=== PATIENT | male | born 1960 | race Caucasian/White ===

== ENCOUNTER 2017-11-25 19:42 | Emergency (ER) | payer MEDICARE ==
[2017-11-25 20:15] LABS: #Basophils 0.1 thou/uL (0.0-0.2); #Eosinphils 0.2 thou/uL (0.0-0.7); #Lymphocytes 2.9 thou/uL (1.20-3.40); #Monocytes 0.8 thou/uL (0.11-0.59); %Basophils 0.8 % (0.0-1.0); %Eosinophils 2.3 % (0.0-10.0); %Lymphocytes 36.1 % (21.0-51.0); %Monocytes 10.6 % (0.0-10.0); %Neutrophils 50.2 % (42.0-75.0); Hemoglobin 15.5 g/dL (14.0-18.0); Mean Corpuscular HGB CONC 35.5 g/dL (32.0-36.0); Mean Corpuscular Hemoglobin 32.9 pg (27.0-31.0); Mean Corpuscular Volume 92.8 fl (80.0-94.0); Mean Platelet Volume 7.1 fL (7.4-10.4); Platelet Count 255 thou/uL (130-400); RBC Distribution Width 12.2 % (11.5-14.5); Red Blood Cell (RBC) Count 4.69 mill/uL (4.70-6.10); White Blood Cell (WBC) Count 7.9 thou/uL (4.8-10.8)
[2017-11-25 20:30] LABS: ALT (SGPT) 20 U/L (8-55); AST (SGOT) 18 U/L (5-34); Albumin 4.4 g/dL (3.5-5.0); Alkaline Phosphatase 62 U/L (40-150); Anion Gap 12 mmol/L (10-20); BUN (Urea Nitrogen) 18 mg/dL (8.4-25.7); Bilirubin, Total 0.6 mg/dL (0.2-1.2); Calc. Creatinine Clearance 0 mL/min (70-130); Calcium 9.9 mg/dL (7.8-10.44); Carbon Dioxide 26 mmol/L (22-29); Chloride 102 mmol/L (98-107); Estimated GFR-MDRD 73; Glucose 91 mg/dL (70-105); Protein, Total 7.4 g/dL (6.0-8.3); Sodium 136 mmol/L (136-145)
--- NOTE | 2017-11-25 20:31 | CT ---
HEAD CT NONCONTRAST: Indication: Fall, altered mental status. Injury. Comparison: 10-25-16 FINDINGS: Stable region of left temporal encephalomalacia with overlying craniotomy. Mild ex vacuo dilatation i s grossly stable. There is no evidence of acute intracranial hemorrhage, mass effect, or midline shif t. IMPRESSION: Stable noncontrast head CT without evidence of acute intracranial hemorrhage or mass effect. POS: [facility]
[2017-11-25 20:33] LABS: Lactic Acid 0.8 mmol/L (0.5-2.2)
[2017-11-25 20:34] LABS: Troponin I 0.013 ng/mL (< 0.028)
[2017-11-25 20:37] LABS: Acetaminophen Less than 6.0 mcg/mL (10.0-30.0); Alcohol Less than 10 mg/dL (Less than 10); Lipase 46 U/L (8-78); Salicylate Less than 8.0 mg/dL (15.0-30.0)
[2017-11-25 21:19] LABS: Amphetamine Not Detected (NotDetected); Barbiturates Screen Not Detected (NotDetected); Benzodiazepine Screen Not Detected (NotDetected); Cocaine Metabolite Screen Not Detected (NotDetected); Medtox Control Line Valid? VALID (VALID); Medtox Reader # READER 1; Methadone Not Detected (NotDetected); Methamphetamine Not Detected (NotDetected); Opiate Screen Detected (NotDetected); Oxycodone Screen Not Detected (NotDetected); Phencyclidine (PCP) Not Detected (NotDetected); THC/Cannabinoid Screen Not Detected (NotDetected); Tricyclic Screen Not Detected (NotDetected)
[2017-11-25] MEDS ORDERED: Ondansetron HCl/PF 4 MG/2 ML Vial ONE (21:19)
--- NOTE | 2017-11-25 23:05 | CT ---
NONCONTRAST CT ABDOMEN AND PELVIS CT LUMBAR SPINE: Date: 11-25-17 History: Patient with lower back pain with pain radiating to left leg after falling onto back. Patien t passed out on stretcher. Comparison: 10-25-16 FINDINGS: There is dependent atelectasis bilaterally. Lung bases are otherwise clear. There is a stable low density lesion within the medial aspect inferior pole left kidney. The liver, spleen, pancreas bilateral adrenal glands, right kidney and urinary bladder demonstrate a grossly normal nonenhanced CT appearance. Nonenhanced imaging limits sensitivity for evaluation of pa renchymal organ injury. Vascular calcifications are seen in the abdominal aorta and iliac arteries. IVC filter is again noted in place. The appendix is visualized and normal in caliber. No free fluid, fluid collection, or lymphadenopathy is seen in the abdomen or pelvis. There has been no significant interval change when compared to the post contrasted study in 2017. CT LUMBAR SPINE: No fracture or subluxation is seen involving the lumbar spine. There is posterior fusion at the L5-S1 level with suggestion of prior laminectomy defect at this level. The vertebral body heights are with in normal limits. Degenerative changes are seen in the lumbar spine. IMPRESSION: 1. No acute findings are seen in the abdomen or pelvis on this nonenhanced CT scan exam. 2. Stable low density lesion in the inferior pole left kidney. 3. Vascular calcifications. 4. Degenerative changes in the lumbar spine, but no fracture or subluxation is appreciated. POS: [facility]
== END 2017-11-25 23:00 | disposition home or self-care (01) ==
LOC: ERS 19:42
DX: S06.0X0A Concussion without loss of consciousness, initial encounter (principal); Z79.899 Other long term (current) drug therapy; W19.XXXA Unspecified fall, initial encounter
CPT/HCPCS: 36415; 36416; 70450; 74176; 80053; 80306; 80307; 82140; 83605; 83690; 84146; 84484; 85025; 93005; 96374; 96375; J2270; J2405

== ENCOUNTER 2017-12-26 07:50 | Day surgery (SDC) | payer MEDICARE ==
[2017-12-25 14:04] VITALS: BMI 22.4
--- NOTE | 2017-12-25 23:06 | HP ---
HISTORY OF PRESENT ILLNESS: Mr. Hamilton is a 57-year-old man who is known to us for prior decompress bryce craniectomy in 2015 as well as subsequent cranioplasty. He returns today for evaluation of sever e left-sided L5 radiculopathy that has caused him profound amount of pain and debility. He does have a CAT scan performed at [facility] a few months ago that reveals severe bony narrowing of the latera l recess at L4-L5 to the left and I feel it fits his pain rather well. On exam, patient is alert and oriented x3. His gait is severely antalgic. Straight leg raise is positive on the left lower extre mity. He is also sensitive and tender to palpation over the left buttock and left low back. PAST MEDICAL HISTORY: Severe traumatic brain injury. PAST SURGICAL HISTORY: Lumbar decompression, craniectomy and cranioplasty. CURRENT MEDICATIONS: Clonazepam, trazodone, and Tylenol. ALLERGIES: No known drug allergies. ASSESSMENT: Lumbar radiculopathy. PLAN: Dr. Bauer met with the patient, reviewed imaging and advocated for a left L5 decompression. Ester smith explained to the patient the risks, benefits, and alternatives of the procedure. The patient expre ssed understanding and would like to move forward with surgery as discussed. I do believe the patien t is mentally competent and capable of making medical decisions for himself. We will perform surgery as planned.
[2017-12-26] MEDS ORDERED: Levofloxacin 500 mg/D5W 100 ml Premix Bag ONE (09:46)
[2017-12-26] MEDS ORDERED: Clindamycin/D5W 900 mg/50 ml Premix Bag ONE ×2 (09:46→10:33)
[2017-12-26] MEDS ORDERED: Bupivacaine HCl 0.5%/Epinephrine 1:200,000/PF 30 ml Vial ONE (10:17)
[2017-12-26] MEDS ORDERED: Fentanyl 100 MCG/2 ML VIAL ONE ×2 (11:09→12:59)
--- NOTE | 2017-12-26 12:12 | OP ---
DATE OF PROCEDURE: 12/26/2017 SURGEON: Jonathan Bauer M.D. NURSE COLLEGE: Quincy Faye PA-C. INDICATION: Pain. DIAGNOSIS: Lumbar radiculopathy. PROCEDURES PERFORMED: Left L5 hemilaminectomy, medial facetectomy, decompression. ANESTHESIA: General. TECHNIQUE: The patient was brought into the operating room and placed under general anesthesia. He was flipped from a supine to prone position on the operating room table. A linear incision was plann ed over the L5 segment. After prepping and draping and after an appropriate operative pause, the inc ision was created. The soft tissues were swept away from midline. After confirming the appropriate level, high-speed cutting drill bit as well as 2, 3 and 4-mm Kerrison was used to perform hemilaminec cathryn along L5 on the left to decompress the bony elements encroaching upon the lateral recess. After decompressing the segment, the wound was irrigated. Hemostasis was maintained throughout. The woun d was then closed in anatomic layers and a pressure dressing was applied. There were no known proced ural complications.
[2017-12-26] MEDS ORDERED: PROPOFOL 200 MG/20 ML VIAL ONE (13:15)
[2017-12-26] MEDS ORDERED: Glycopyrrolate 0.2 MG/ML 5 ML SYRINGE ONE (13:15)
[2017-12-26] MEDS ORDERED: PHENYLEPHRINE-NS 100 MCG/ML 10 ML SYRINGE ONE (13:15)
[2017-12-26] MEDS ORDERED: Ondansetron HCl/PF 4 MG/2 ML Vial ONE (13:15)
[2017-12-26] MEDS ORDERED: Lidocaine 1% PF 5 ML VIAL ONE (13:15)
[2017-12-26] MEDS ORDERED: Morphine 4 MG/ML VIAL ONE (13:31)
[2017-12-26] MEDS ORDERED: Acetaminophen/Codeine 30-300mg Tablet ONE (15:03)
== END 2017-12-26 15:45 | disposition home or self-care (01) ==
LOC: SDC 07:50
PROVIDERS: ATTEND Neurological Surgery
PROC: 01NB0ZZ Release Lumbar Nerve, Open Approach (ICD-10-PCS; principal; 2017-12-26)
DX: M54.16 Radiculopathy, lumbar region (principal); Z79.899 Other long term (current) drug therapy; Z88.0 Allergy status to penicillin; Z98.890 Other specified postprocedural states; Z87.820 Personal history of traumatic brain injury
CPT/HCPCS: 76001; 96374; J0670; J1956; J2001; J2270; J2405; J2704; J3010; J3490

== ENCOUNTER 2018-09-30 15:47 | Emergency (ER) | payer MEDICARE ==
[2018-09-30 16:25] LABS: #Eosinphils 0.1 thou/uL (0.0-0.7); #Lymphocytes 1.3 thou/uL (1.20-3.40); #Monocytes 0.7 thou/uL (0.11-0.59); #Neutrophils 5.8 thou/uL (1.40-6.50); %Basophils 0.3 % (0.0-1.0); %Eosinophils 1.2 % (0.0-10.0); %Lymphocytes 16.4 % (21.0-51.0); %Monocytes 8.3 % (0.0-10.0); %Neutrophils 73.7 % (42.0-75.0); Hemoglobin 16.6 g/dL (14.0-18.0); Mean Corpuscular Hemoglobin 31.6 pg (27.0-31.0); Mean Corpuscular Volume 90.3 fL (78.0-98.0); Mean Platelet Volume 7.8 fL (7.4-10.4); Platelet Count 277 thou/uL (130-400); RBC Distribution Width 11.7 % (11.5-14.5); Red Blood Cell (RBC) Count 5.26 mill/uL (4.70-6.10); White Blood Cell (WBC) Count 7.8 thou/uL (4.8-10.8)
[2018-09-30] MEDS ORDERED: Acetaminophen 500 MG TAB ONE (16:42)
[2018-09-30 16:46] LABS: Acetaminophen Less than 6.0 mcg/mL (10.0-30.0); Alcohol Less than 10 mg/dL (Less than 10); CK (CPK) 58 U/L (30-200); Salicylate Less than 8.0 mg/dL (15.0-30.0)
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
[2018-09-30 17:12] LABS: Amphetamine Not Detected (NotDetected); Barbiturates Screen Not Detected (NotDetected); Benzodiazepine Screen Not Detected (NotDetected); Cocaine Metabolite Screen Not Detected (NotDetected); Medtox Control Line Valid? VALID (VALID); Medtox Reader # READER 1; Methadone Not Detected (NotDetected); Methamphetamine Not Detected (NotDetected); Opiate Screen Detected (NotDetected); Oxycodone Screen Not Detected (NotDetected); Phencyclidine (PCP) Not Detected (NotDetected); THC/Cannabinoid Screen Not Detected (NotDetected); Tricyclic Screen Not Detected (NotDetected)
== END 2018-09-30 17:30 | disposition home or self-care (01) ==
LOC: ERS 15:47
DX: S06.0X0A Concussion without loss of consciousness, initial encounter (principal); I10 Essential (primary) hypertension; W22.8XXA Striking against or struck by other objects, initial encounter; Y93.67 Activity, basketball
CPT/HCPCS: 36415; 70450; 80306; 80307; 82550; 85025; 93005

== ENCOUNTER 2018-12-31 18:31 | Emergency (ER) | payer MEDICARE ==
--- NOTE | 2018-12-31 20:01 | RAD ---
RIGHT KNEE FOUR VIEWS: 12/31/18 HISTORY: Right knee pain. FINDINGS/IMPRESSION: Comparison made with exam of 10/17/15. Degenerative changes are again seen. No acute fracture, dislocation or bony destruction identified. POS: [facility]
== END 2018-12-31 19:23 | disposition left against medical advice (07) ==
LOC: ERS 18:31
DX: M25.561 Pain in right knee (principal)

== ENCOUNTER 2021-03-05 19:18 | Emergency (ER) | payer OTHER, MEDICARE ==
[2021-03-05] MEDS ORDERED: Ketorolac Tromethamine 30 MG/ML VIAL ONE (19:25)
== END 2021-03-05 20:15 | disposition home or self-care (01) ==
LOC: ERS 19:18
DX: M54.2 Cervicalgia (principal); R51.9 Headache, unspecified; V89.2XXA Person injured in unspecified motor-vehicle accident, traffic, initial encounter
CPT/HCPCS: 72125; 96374; J1885

== ENCOUNTER 2022-01-23 23:21 | Emergency (ER) | payer MEDICARE ==
[2022-01-23] MEDS ORDERED: Ondansetron PF 4 MG/2 ML Vial ONE (23:44)
[2022-01-23] MEDS ORDERED: Morphine 4 MG/ML VIAL ONE (23:44)
[2022-01-24 00:11] LABS: #Eosinphils 0.1 thou/uL (0.0-0.7); #Lymphocytes 3.3 thou/uL (1.20-3.40); #Monocytes 1.3 thou/uL (0.11-0.59); #Neutrophils 6.8 thou/uL (1.40-6.50); %Basophils 0.3 % (0.0-1.0); %Lymphocytes 28.3 % (21.0-51.0); %Monocytes 11.1 % (0.0-10.0); %Neutrophils 59.3 % (42.0-75.0); Hemoglobin 16.1 g/dL (14.0-18.0); Mean Corpuscular HGB CONC 34.7 g/dL (32.0-36.0); Mean Corpuscular Hemoglobin 32.2 pg (27.0-31.0); Mean Corpuscular Volume 92.6 fL (78.0-98.0); Mean Platelet Volume 7.3 fL (7.4-10.4); Platelet Count 272 thou/uL (130-400); RBC Distribution Width 11.6 % (11.5-14.5); White Blood Cell (WBC) Count 11.5 thou/uL (4.8-10.8)
[2022-01-24 00:30] LABS: ALT (SGPT) 26 U/L (8-55); AST (SGOT) 21 U/L (5-34); Albumin 4.3 g/dL (3.5-5.0); Alkaline Phosphatase 71 U/L (40-110); Anion Gap 13 mmol/L (10-20); BUN (Urea Nitrogen) 19 mg/dL (8.4-25.7); Bilirubin, Total 0.5 mg/dL (0.2-1.2); Calc. Creatinine Clearance 0 mL/min (70-130); Calcium 9.8 mg/dL (7.8-10.44); Carbon Dioxide 25 mmol/L (22-29); Chloride 103 mmol/L (98-107); Globulin 3.2 g/dL (2.4-3.5); Glucose 95 mg/dL (70-105); Potassium 3.9 mmol/L (3.5-5.1); Protein, Total 7.5 g/dL (6.0-8.3); Sodium 137 mmol/L (136-145)
[2022-01-24 01:26] LABS: Bacteria/HPF None Seen HPF (None Seen); Bilirubin Negative (Negative); Blood, Urine 3+ (Negative); Clarity Clear (Clear); Glucose, Urine (Dipstick) Normal (Negative); Ketone, Urine Negative (Negative); Leukocyte 25 Leu/uL (Negative); Nitrite Negative (Negative); Protein, Urine (Dipstick) 10 mg/dL (Neg-Trace); RBC/HPF Greater than 50 HPF (0-3); Specific Gravity, Urine 1.028 (1.002-1.036); Squamous Epithelial None Seen HPF (0-3); Urobilinogen Normal mg/dL (Less than 2); WBC/HPF 21-50 HPF (0-3); pH, Urine 5.5 (5.0-9.0)
[2022-01-24 18:10] LABS: Chlam.trachomatis by PCR,Urine Not Detected (NotDetected)
== END 2022-01-24 02:13 | disposition home or self-care (01) ==
LOC: ERS 23:21
DX: N45.1 Epididymitis (principal)
CPT/HCPCS: 76870; 80053; 81003; 81015; 85025; 87491; 87591; 93976; 96374; 96375; J2270; J2405

== ENCOUNTER 2022-06-27 16:57 | Inpatient (IN) | payer OTHER, MEDICARE ==
[2022-06-27] MEDS ORDERED: Morphine 4 MG/ML VIAL ONE (17:03)
[2022-06-27] MEDS ORDERED: Boostrix 0.5 ML (Tdap) VIAL (>/=7 yrs of age) ONE (17:47)
[2022-06-27] MEDS ORDERED: HYDROmorphone 0.5 MG/0.5 ML SYRINGE ONE (17:54)
[2022-06-27 18:16] LABS: #Eosinphils 0.1 thou/uL (0.0-0.7); #Lymphocytes 1.7 thou/uL (1.20-3.40); #Monocytes 1.1 thou/uL (0.11-0.59); #Neutrophils 11.4 thou/uL (1.40-6.50); %Basophils 0.3 % (0.0-1.0); %Eosinophils 0.6 % (0.0-10.0); %Lymphocytes 11.9 % (21.0-51.0); %Monocytes 7.8 % (0.0-10.0); %Neutrophils 79.4 % (42.0-75.0); Hemoglobin 15.4 g/dL (14.0-18.0); Mean Corpuscular HGB CONC 34.2 g/dL (32.0-36.0); Mean Corpuscular Hemoglobin 32.2 pg (27.0-31.0); Mean Corpuscular Volume 94.1 fL (78.0-98.0); Platelet Count 247 thou/uL (130-400); RBC Distribution Width 12.1 % (11.5-14.5); White Blood Cell (WBC) Count 14.3 thou/uL (4.8-10.8)
[2022-06-27 18:27] LABS: INR-International Normal Ratio 0.9; Prothrombin Time 12.7 sec (12.0-14.7)
[2022-06-27 18:28] LABS: PTT 30.2 sec (22.9-36.1)
[2022-06-27] MEDS ORDERED: hydrALAZINE 20 MG/ML VIAL SLOW IVP PRN (18:35)
[2022-06-27] MEDS ORDERED: Dextrose 5% in Water 1,000 ML IV PRN (18:35)
[2022-06-27] MEDS ORDERED: Dextrose 50% Abboject 50 ML SYRINGE SLOW IVP PRN (18:35)
[2022-06-27] MEDS ORDERED: Fentanyl 100 MCG/2 ML VIAL ONE (19:06)
[2022-06-27 19:14] LABS: Phosphorus 2.7 mg/dL (2.3-4.7)
[2022-06-27 19:15] LABS: ALT (SGPT) 37 U/L (8-55); AST (SGOT) 28 U/L (5-34); Albumin 4.4 g/dL (3.5-5.0); Alkaline Phosphatase 69 U/L (40-110); Anion Gap 12 mmol/L (10-20); BUN (Urea Nitrogen) 15 mg/dL (8.4-25.7); Bilirubin, Total 0.7 mg/dL (0.2-1.2); Calc. Creatinine Clearance 0 mL/min (70-130); Calcium 9.5 mg/dL (7.8-10.44); Carbon Dioxide 26 mmol/L (22-29); Chloride 104 mmol/L (98-107); Estimated GFR 77; Glucose 101 mg/dL (70-105); Potassium 3.9 mmol/L (3.5-5.1); Protein, Total 7.4 g/dL (6.0-8.3); Sodium 138 mmol/L (136-145)
[2022-06-27 20:15] VITALS: BMI 27.3
[2022-06-27] MEDS ORDERED: Potassium Phosphate 15 MMOL in Sodium Chloride 0.9% 250 ML 250 ML IVPB SCH (20:15)
[2022-06-27] MEDS: Sodium Chloride 0.9% 1,000 ML IV SCH (20:18)
[2022-06-27] MEDS: Famotidine/PF 20 mg/2ml Vial SLOW IVP SCH (20:30)
[2022-06-27] MEDS: Gabapentin 300 MG CAP PO SCH (20:30)
[2022-06-27] MEDS: Cyclobenzaprine 10 MG TAB PO PRN (20:31)
[2022-06-27] MEDS: Senokot S 8.6-50 MG TAB PO SCH (20:31)
[2022-06-27] MEDS: Ibuprofen 200 MG TAB PO SCH (20:31)
[2022-06-27] MEDS: Morphine 4 MG/ML VIAL SLOW IVP PRN ×2 (20:31→23:01)
[2022-06-27 23:49] LABS: SARS-CoV-2 NAA Rapid Test Not Detected (NotDetected)
[2022-06-28] MEDS: Acetaminophen 500 MG TAB PO SCH ×5 (00:07→23:29)
[2022-06-28] MEDS: traMADol HCl 50 MG TAB PO SCH ×5 (00:08→23:30)
[2022-06-28] MEDS: Morphine 4 MG/ML VIAL SLOW IVP PRN ×3 (02:37→18:29)
[2022-06-28] MEDS: Ibuprofen 200 MG TAB PO SCH ×3 (04:49→21:21)
[2022-06-28 06:20] LABS: #Eosinphils 0.2 thou/uL (0.0-0.7); #Lymphocytes 2.9 thou/uL (1.20-3.40); %Basophils 0.4 % (0.0-1.0); %Eosinophils 1.9 % (0.0-10.0); %Lymphocytes 35.7 % (21.0-51.0); %Monocytes 12.5 % (0.0-10.0); %Neutrophils 49.5 % (42.0-75.0); Hemoglobin 13.2 g/dL (14.0-18.0); Mean Corpuscular HGB CONC 33.8 g/dL (32.0-36.0); Mean Corpuscular Hemoglobin 32.2 pg (27.0-31.0); Mean Corpuscular Volume 95.4 fL (78.0-98.0); Mean Platelet Volume 7.8 fL (7.4-10.4); Platelet Count 205 thou/uL (130-400); RBC Distribution Width 12.4 % (11.5-14.5); Red Blood Cell (RBC) Count 4.11 mill/uL (4.70-6.10); White Blood Cell (WBC) Count 8.1 thou/uL (4.8-10.8)
[2022-06-28] MEDS ORDERED: Clindamycin/D5W 900 MG in Premix Bag 1 BAG IVPB SCH (07:30)
[2022-06-28 07:46] LABS: Anion Gap 9 mmol/L (10-20); BUN (Urea Nitrogen) 14 mg/dL (8.4-25.7); CK (CPK) 325 U/L (30-200); Calc. Creatinine Clearance 93 mL/min (70-130); Carbon Dioxide 26 mmol/L (22-29); Chloride 108 mmol/L (98-107); Estimated GFR 91; Glucose 96 mg/dL (70-105); Magnesium 1.9 mg/dL (1.6-2.6); Phosphorus 3.2 mg/dL (2.3-4.7); Potassium 3.8 mmol/L (3.5-5.1); Sodium 139 mmol/L (136-145)
[2022-06-28] MEDS: Famotidine/PF 20 mg/2ml Vial SLOW IVP SCH ×2 (09:00→21:23)
[2022-06-28] MEDS: Gabapentin 300 MG CAP PO SCH ×3 (09:01→21:22)
[2022-06-28] MEDS: Polyethylene Glycol 3350 17 GM Packet PO SCH (09:02)
[2022-06-28] MEDS: Senokot S 8.6-50 MG TAB PO SCH ×2 (09:02→21:21)
[2022-06-28] MEDS: Ondansetron PF 4 MG/2 ML Vial IVP PRN ×2 (09:07→18:29)
[2022-06-28] MEDS: Sodium Chloride 0.9% 1,000 ML IV SCH (09:18)
[2022-06-28] MEDS ORDERED: Midazolam HCl 2 mg/2 ml Vial ONE (12:59)
[2022-06-28] MEDS ORDERED: Promethazine HCl 25 MG/ML VIAL IVPB PRN ×2 (13:02→13:45)
[2022-06-28] MEDS ORDERED: Ondansetron HCl/PF 4 MG/2 ML Vial IVP PRN (13:02)
[2022-06-28] MEDS ORDERED: Promethazine HCl 25 MG/ML VIAL IM PRN ×2 (13:02→13:45)
[2022-06-28] MEDS ORDERED: Clindamycin/D5W 900 mg/50 ml Premix Bag ONE (13:14)
[2022-06-28] MEDS ORDERED: fentaNYL Citrate/PF 100 MCG/2 ML SYRINGE ONE ×2 (13:16→14:20)
[2022-06-28] MEDS ORDERED: Lidocaine 1% MPF 2 ML VIAL ONE (13:29)
[2022-06-28] MEDS ORDERED: Glycopyrrolate 0.2 MG/ML 5 ML SYRINGE ONE (13:29)
[2022-06-28] MEDS ORDERED: Ondansetron PF 4 MG/2 ML Vial ONE (13:29)
[2022-06-28] MEDS ORDERED: PROPOFOL 200 MG/20 ML VIAL ONE (13:29)
[2022-06-28] MEDS ORDERED: ePHEDrine 50 MG/ML VIAL ONE (13:29)
[2022-06-28] MEDS ORDERED: Dexamethasone 20 MG/5 ML VIAL ONE (13:29)
[2022-06-28] MEDS ORDERED: Ketorolac Tromethamine 30 MG/ML VIAL ONE (13:29)
[2022-06-28] MEDS ORDERED: PACU-Morphine 4MG/ML VIAL SLOW IVP PRN (13:45)
[2022-06-28] MEDS ORDERED: Meperidine HCl/PF 25 MG/ML VIAL SLOW IVP PRN (13:45)
[2022-06-28] MEDS ORDERED: Fentanyl 100 MCG/2 ML VIAL ONE (15:36)
[2022-06-28] MEDS: Clindamycin/D5W 900 MG in Premix Bag 1 BAG IVPB SCH (21:24)
[2022-06-29] MEDS: Morphine 4 MG/ML VIAL SLOW IVP PRN (02:36)
[2022-06-29] MEDS: traMADol HCl 50 MG TAB PO SCH ×3 (05:03→18:00)
[2022-06-29] MEDS: Acetaminophen 500 MG TAB PO SCH ×3 (05:04→17:59)
[2022-06-29] MEDS: Ibuprofen 200 MG TAB PO SCH ×2 (05:05→13:27)
[2022-06-29] MEDS: Clindamycin/D5W 900 MG in Premix Bag 1 BAG IVPB SCH ×2 (05:06→13:26)
[2022-06-29 06:42] LABS: #Basophils 0.2 thou/uL (0.0-0.2); #Lymphocytes 1.4 thou/uL (1.20-3.40); #Monocytes 0.8 thou/uL (0.11-0.59); #Neutrophils 11.4 thou/uL (1.40-6.50); %Basophils 1.1 % (0.0-1.0); %Eosinophils 0.1 % (0.0-10.0); %Lymphocytes 10.3 % (21.0-51.0); %Monocytes 5.9 % (0.0-10.0); %Neutrophils 82.7 % (42.0-75.0); Hemoglobin 13.2 g/dL (14.0-18.0); Mean Corpuscular HGB CONC 33.3 g/dL (32.0-36.0); Mean Corpuscular Hemoglobin 31.9 pg (27.0-31.0); Mean Corpuscular Volume 95.9 fL (78.0-98.0); Mean Platelet Volume 8.3 fL (7.4-10.4); Platelet Count 219 thou/uL (130-400); Red Blood Cell (RBC) Count 4.15 mill/uL (4.70-6.10); White Blood Cell (WBC) Count 13.7 thou/uL (4.8-10.8)
[2022-06-29 06:56] LABS: Anion Gap 11 mmol/L (10-20); BUN (Urea Nitrogen) 11 mg/dL (8.4-25.7); Calc. Creatinine Clearance 101 mL/min (70-130); Calcium 8.6 mg/dL (7.8-10.44); Carbon Dioxide 23 mmol/L (22-29); Chloride 105 mmol/L (98-107); Estimated GFR 99; Glucose 129 mg/dL (70-105); Phosphorus 2.2 mg/dL (2.3-4.7); Potassium 4.1 mmol/L (3.5-5.1); Sodium 135 mmol/L (136-145)
[2022-06-29] MEDS ORDERED: Enoxaparin Sodium 40 MG/0.4 ML SYRINGE SC SCH (09:00)
[2022-06-29] MEDS ORDERED: Sodium Phosphate 30 MMOL in Sodium Chloride 0.9% 250 ML 250 ML IVPB SCH (09:00)
[2022-06-29] MEDS ORDERED: Famotidine 20 MG TAB PO SCH (09:00)
[2022-06-29] MEDS: Gabapentin 300 MG CAP PO SCH ×2 (09:11→13:26)
[2022-06-29] MEDS: Senokot S 8.6-50 MG TAB PO SCH (09:11)
[2022-06-29] MEDS: Polyethylene Glycol 3350 17 GM Packet PO SCH (09:11)
[2022-06-29] MEDS: Cyclobenzaprine 10 MG TAB PO PRN (09:11)
[2022-06-29 12:30] VITALS: TEMP 98.2
[2022-06-29 17:08] VITALS: BP 145/81
[2022-06-29] MEDS ORDERED: traZODone HCl 50 MG TAB PO SCH ×2 (21:00)
== END 2022-06-29 18:10 | disposition home or self-care (01) | DRG 908 ==
LOC: ERS 16:57 → SURG A 18:39
PROVIDERS: ADMIT Surgery; ATTEND Surgery
PROC: 0QSH04Z Reposition Left Tibia with Internal Fixation Device, Open Approach (ICD-10-PCS; principal; 2022-06-28)
DX: S87.82XA Crushing injury of left lower leg, initial encounter (principal); S82.102A Unspecified fracture of upper end of left tibia, initial encounter for closed fracture; S82.492A Other fracture of shaft of left fibula, initial encounter for closed fracture; I10 Essential (primary) hypertension; W23.0XXA Caught, crushed, jammed, or pinched between moving objects, initial encounter; Y92.89 Other specified places as the place of occurrence of the external cause; Z88.0 Allergy status to penicillin; Z20.822 Contact with and (suspected) exposure to COVID-19
CPT/HCPCS: 29105; 36415; 71045; 76000; 80048; 80053; 82550; 83735; 84100; 85025; 85610; 85730; 90471; 90715; 93005; 96374; 96375; C1713; G0390; J1100; J1170; J1650; J1885; J2250; J2270; J2405; J2704; J3010; J3490; J7050; S0028; U0002

== ENCOUNTER 2022-08-10 14:05 | Outpatient (CLI) | payer MEDICARE | END 2022-08-10 14:06 | disposition home or self-care (01) | LOC: ULT 14:05 | PROVIDERS: ATTEND Physician Assistant Surgical | DX: S82.202A Unspecified fracture of shaft of left tibia, initial encounter for closed fracture (principal) ==

== ENCOUNTER 2022-11-22 09:57 | Outpatient (CLI) | payer MEDICARE | END 2022-11-22 09:58 | disposition home or self-care (01) | LOC: BICCT 09:57 | PROVIDERS: ATTEND Physician Assistant Surgical | DX: S82.252D Displaced comminuted fracture of shaft of left tibia, subsequent encounter for closed fracture with routine healing (principal) ==